=== PATIENT | female | born 1940 | race Caucasian/White ===

== ENCOUNTER 2017-04-24 12:49 | Emergency (ER) | payer MEDICARE, BC ==
--- NOTE | 2017-04-24 15:49 | UC ---
Respiratory Complaint HPI - HPI Summary HPI Summary: 76 y/o female presents to the urgent care c/o productive cough with chest congestion for the past 3 days. She heard mild wheezing and SOB yesterday which resolved today. She states mild LEWIS, body aches, +PND. Pt has applied eucalypti oil to alleviate cough. Pt denies fever, chest pain, abdominal pain, N /V/D - History of Current Complaint Stated Complaint: COUGH, CARO. Time Seen by Provider: 04/24/17 15:48 Hx Obtained From: Patient Hx Last Menstrual Period: menopausal ?: No Onset/Duration: Gradual Onset, Lasting Days - 3 days, Still Present, Worse Since - yesterday Timing: Intermittent Episodes Severity Initially: Mild Severity Currently: Mild Pain Intensity: 0 Pain Scale Used: 0-10 Numeric Character: Cough: Productive, Sputum Description: - clear or white at times Aggravating Factors: Recumbent Position Alleviating Factors: OTC Meds Associated Signs And Symptoms: Positive: Wheezing - yesterday, resolved today, URI, Nasal Congestion. Negative: Fever, Chills, Pleuritic Chest Pain, Dizziness - Risk Factors Pulmonary Embolism Risk Factors: Negative Cardiac Risk Factors: Hypertension, Elevated Lipids Pseudomonas Risk Factors: Negative Tuberculosis Risk Factors: Negative - Allergies/Home Medications Allergies/Adverse Reactions: Allergies Allergy/AdvReac Type Severity Reaction Status Date / Time Molds & Smuts Allergy Mild DIZZINESS, Verified 07/06/12 07:28 NAUSEA Acetaminophen [From Percocet] Allergy Hallucinati Verified 07/06/12 07:28 ons Oxycodone [From Percocet] Allergy Hallucinati Verified 07/06/12 07:28 ons Ibuprofen AdvReac See Comment Verified 04/24/17 15:46 BLEACH Allergy Mild DIZZINESS, Uncoded 07/06/12 07:28 NAUSEA ENVIRONMENTAL SENSITIVITIES Allergy DIZZINESS, Uncoded 07/06/12 07:28 NAUSEA Home Medications: Home Medications Apixaban* [Eliquis*] 5 mg PO BID 04/24/17 [History Confirmed 04/24/17] Atorvastatin* [Lipitor*] 10 mg PO BEDTIME 04/24/17 [History Confirmed 04/24/17] Calcitonin NASAL(NF) [Fortical(NR)] 1 mg NASAL DAILY 04/24/17 [History Confirmed 04/24/17] Diltiazem HCl Coated Beads [Diltiazem Cd] 120 mg PO DAILY 04/24/17 [History Confirmed 04/24/17] PARoxetine HCL TAB* [Paxil TAB*] 30 mg PO DAILY 04/24/17 [History Confirmed ] Polyethylene Glycol 3350* [Miralax*] 17 gm PO DAILY 04/24/17 [History Confirmed 04/24/17] Ranitidine HCl 150 mg PO DAILY 04/24/17 [History Confirmed 04/24/17] PMH/Surg Hx/FS Hx/Imm Hx Previously Healthy: Yes Endocrine History: Hypothyroidism, Dyslipidemia Cardiovascular History: Hypertension Other Cardiovascular History: arrhytmia GI/ History: Gastroesophageal Reflux - Surgical History Surgical History: Yes Surgery Procedure, Year, and Place: hysterectomy 2008 - Family History Known Family History: Positive: Hypertension - Social History Occupation: Retired Lives: With Family Substance Use Type: None, Prescribed Review of Systems Constitutional: Other - body aches Skin: Negative Eyes: Negative ENT: Nasal Discharge Respiratory: Cough - productive Cardiovascular: Negative Gastrointestinal: Negative Genitourinary: Negative Motor: Negative Neurovascular: Negative Musculoskeletal: Negative Neurological: Headache - mild Psychological: Negative Is Patient Immunocompromised?: No All Other Systems Reviewed And Are Negative: Yes Physical Exam Triage Information Reviewed: Yes - Additional Comments VITAL SIGNS: Reviewed. GENERAL: Patient is a well developed and nourished female who is sitting comfortable in the examining table. Patient is not in any acute respiratory distress. HEAD AND FACE: No signs of trauma. No ecchymosis, hematomas or skull depressions. No sinus tenderness. edematous erythematous nasal mucosa with yellowish discharge, EYES: PERRLA, EOMI x 2, No injected conjunctiva, clear watery eyes, no nystagmus. No photophobia. EARS: Hearing grossly intact. Ear canals and tympanic membranes are within normal limits. MOUTH: Positive pharynx with erythema, no exudates,no palatal petechiae. no B/L tonsillar enlargement Uvula in midline. NECK: Supple, trachea is midline, Positive anterior cervical lymphadenopathy, no JVD, no carotid bruit, no c-spine tenderness, neck with full ROM. No meningeal signs, no Kernig's or brudzinskis signs. CHEST: Symmetric, no tenderness at palpation LUNGS: Positive breath sound to auscultation bilaterally. Mild rhonchi in the Rt posterior upper lung., NO wheezing or crackles. CVS: Regular rate and rhythm, S1 and S2 present, no murmurs or gallops appreciated. ABDOMEN: Soft, non-tender. No signs of distention. No rebound no guarding, and no masses palpated. Bowel sounds are normal. EXTREMITIES: FROM in all major joints, no edema, no cyanosis or clubbing. NEURO: Alert and oriented x 3. No acute neurological deficits. Speech is normal and follows commands. SKIN: Dry and warm Respiratory Course/Dx - Course Course Of Treatment: 76 y/o female presents to the urgent care c/o productive cough with chest congestion for the past 3 days. She heard mild wheezing and SOB yesterday which resolved today. She states mild LEWIS, body aches, +PND. Pt has applied eucalypti oil to alleviate cough. Pt denies fever, chest pain, abdominal pain, N/V/D. Hx obtained. Pt with URI on examination. RT posteerior upper lung with mild rhonchi. Chest X-ray ordered, Impression: Hyperinflation, consisitent with COPD, no acute cardiopulmonary disease. Pt stopped smoking many years ago. Rapid A&B ordered, result: negative. Pt advised to continue taking Tyenol PO to alleviate symptoms. Pt advised to rest, increase fluid intake, eat well and avoid strenuous exercise. If symptoms do not improve or worsen advised to return to the urgent care or f/u with her PCP for further evaluation and treatment. Pt understood and agreed with plan of care. - Differential Dx/Diagnosis Differential Diagnosis/HQI/PQRI: Asthma, Bronchitis, Influenza, Laryngitis, Lower Resp Infection, Sinusitis Provider Diagnoses: 1- Upper respiratory infection. 2- Uncontrolled HTN Discharge - Discharge Plan Condition: Stable Disposition: HOME Patient Education Materials: Upper Respiratory Infection (ED), Low-Sodium Diet (ED) Referrals: Zachariah Gamboa MD [Primary Care Provider] - 3 Days Additional Instructions: 1-Please take tylenol PO q6-8hrs prn as instructed after meals to alleviate body aches . Increase fluid intake, eat well, rest and avoid strenuous exercise. Use a humidifier at night time. 2-If symptoms do not improve or worsen please f/u with your PCP for further evaluation and treatment. 3- Influenza A&B is negative today 4-Your BP is elevated today. please decrease salt in your diet, monitor BP and if it continues to be elevated please f/u with your PCP for further management
[2017-04-24 16:06] VITALS: BP 140/70
--- NOTE | 2017-04-24 16:35 | RAD ---
HISTORY: Productive cough, shortness of breath COMPARISONS: None VIEWS: 4: Frontal dual-energy and lateral views of the chest. FINDINGS: CARDIOMEDIASTINAL SILHOUETTE: The cardiomediastinal silhouette is normal. MARLA: The marla are normal. PLEURA: The costophrenic angles are sharp. No pleural abnormalities are noted. LUNG PARENCHYMA: There is hyperinflation with flattening of the diaphragm and expansion of the AP diameter of the chest. ABDOMEN: The upper abdomen is clear. There is no subphrenic gas. BONES AND SOFT TISSUES: No bone or soft tissue abnormalities are noted. OTHER: None. IMPRESSION: HYPERINFLATION, CONSISTENT WITH COPD. NO ACTIVE CARDIOPULMONARY DISEASE.
== END 2017-04-24 17:01 | disposition home or self-care (01) ==
LOC: UCCORT 12:49
DX: J06.9 Acute upper respiratory infection, unspecified (principal); Z78.0 Asymptomatic menopausal state; I10 Essential (primary) hypertension; E78.5 Hyperlipidemia, unspecified; Z88.6 Allergy status to analgesic agent; Z88.5 Allergy status to narcotic agent; Z79.01 Long term (current) use of anticoagulants; E03.9 Hypothyroidism, unspecified; I49.9 Cardiac arrhythmia, unspecified; K21.9 Gastro-esophageal reflux disease without esophagitis
CPT/HCPCS: 71046; 87502; 99212; G0463

== ENCOUNTER 2017-12-10 13:14 | Emergency (ER) | payer MEDICARE, BC ==
[2017-12-10 13:49] VITALS: BP 125/63
--- NOTE | 2017-12-10 15:01 | UC ---
Skin Complaint HPI - HPI Summary HPI Summary: Bee sting to left hand fourth finger yesterday. Now has edema to the hand and she is unable to remove her ring. - History of Current Complaint Chief Complaint: UCSkin Time Seen by Provider: 12/10/17 14:43 Stated Complaint: LEFT HAND SWELLING Hx Obtained From: Patient Hx Last Menstrual Period: menopausal Onset/Duration: Sudden Onset, Lasting Days - 1 day, Still Present Timing: Constant Onset Severity: Mild Current Severity: Moderate Pain Intensity: 5 Pain Scale Used: 0-10 Numeric Location: Discrete - left hand Character: Swelling Aggravating Factor(s): Nothing Alleviating Factor(s): Nothing Associated Signs & Symptoms: Negative: Nausea, Difficulty Breathing, Fever, Throat Tightening Related History: Insect Bite/Sting - Allergy/Home Medications Allergies/Adverse Reactions: Allergies Allergy/AdvReac Type Severity Reaction Status Date / Time acetaminophen [From Percocet] Allergy Hallucinations- Verified 12/10/17 13:53 Pt can take acetaminophen mold Allergy Dizziness Verified 12/10/17 13:53 oxycodone [From Percocet] Allergy Hallucinati Verified 12/10/17 13:51 ons ibuprofen AdvReac Pt on Verified 12/10/17 13:51 Eloquis BLEACH Allergy Mild DIZZINESS, Uncoded 07/06/12 07:28 NAUSEA ENVIRONMENTAL SENSITIVITIES Allergy DIZZINESS, Uncoded 07/06/12 07:28 NAUSEA Home Medications: Home Medications Ca, Mg, Vitamin D 1 tab PO DAILY 12/10/17 [History Confirmed 12/10/17] Flaxseed Oil [Berlin-3 Flaxseed Oil] 1,000 mg PO DAILY 12/10/17 [History Confirmed 12/10/17] Review of Systems Constitutional: Negative Skin: Other - bee sting Respiratory: Negative Cardiovascular: Negative Gastrointestinal: Negative Musculoskeletal: Edema All Other Systems Reviewed And Are Negative: Yes PMH/Surg Hx/FS Hx/Imm Hx Cardiovascular History: Hypertension - Surgical History Surgical History: Yes Surgery Procedure, Year, and Place: hysterectomy 2008 - Family History Known Family History: Positive: Hypertension - Social History Alcohol Use: None Substance Use Type: None Smoking Status (MU): Never Smoked Tobacco Physical Exam Triage Information Reviewed: Yes Appearance: Well-Appearing, Well-Nourished Vital Signs: Initial Vital Signs Temp 98.4 F 12/10/17 13:38 Pulse 55 12/10/17 13:38 Resp 20 12/10/17 13:38 BP 125/63 12/10/17 13:38 Pulse Ox 100 12/10/17 13:38 Vital Signs Reviewed: Yes Eyes: Positive: Conjunctiva Clear ENT: Positive: Hearing grossly normal Neck: Positive: Supple Respiratory: Positive: No respiratory distress, No accessory muscle use Cardiovascular: Positive: Pulses Normal Abdomen Description: Positive: Soft Musculoskeletal: Positive: Edema @ - LEFT HAND/FINGERS Neurological: Positive: Alert Psychological: Positive: Age Appropriate Behavior Skin: Positive: Other - BEE STING DORSUM LEFT 4TH FINGER OVERLYING PROXIMAL PHALANX. Negative: rashes Course/Dx - Course Course Of Treatment: RING CUTTER USED TO REMOVE RING LEFT 4TH FINGER WITHOUT DIFFICULTY. PREDNISONE AND OTC ANTIHISTAMINE. F/U IF NEEDED. - Diagnoses Provider Diagnoses: 1. BEE STING. 2. RING REMOVAL Discharge - Sign-Out/Discharge Documenting (check all that apply): Patient Departure All imaging exams completed and their final reports reviewed: No Studies - Discharge Plan Condition: Stable Disposition: HOME Prescriptions: predniSONE TAB* [Deltasone 20 MG TAB*] 40 mg PO DAILY #10 tab Patient Education Materials: Insect Bite or Sting (ED) Referrals: Zachariah Gamboa MD [Primary Care Provider] - If Needed Additional Instructions: THE SWELLING IN YOUR HAND IS LIKELY DUE TO A LOCAL ALLERGIC REACTION TO THE BEE STING. AVOID OVERHEATING. KEEP THE LIMB ELEVATED. TAKE AN [id number]-[id number] ANTIHISTAMINE DAILY (CLARITIN (LORATADINE), ZYRTEC (CETIRIZINE) OR NAIN ( FEXOFENADINE)) IN THE MORNING. PREDNISONE DAILY FOR 5 DAYS. SEEK FOLLOW-UP IF YOU DEVELOP SPREADING REDNESS OF THE SKIN, PURULENT DRAINAGE, FEVER, INCREASED PAIN OR ANY OTHER CONCERNING SYMPTOMS. - Billing Disposition and Condition Condition: STABLE Disposition: Home
== END 2017-12-10 15:19 | disposition home or self-care (01) ==
LOC: UCCORT 13:14
DX: T63.441A Toxic effect of venom of bees, accidental (unintentional), initial encounter (principal); M79.89 Other specified soft tissue disorders; Y92.9 Unspecified place or not applicable; Z88.6 Allergy status to analgesic agent; Z88.5 Allergy status to narcotic agent; I10 Essential (primary) hypertension
CPT/HCPCS: 99213; G0463

== ENCOUNTER 2017-12-12 15:44 | Emergency (ER) | payer MEDICARE, BC ==
[2017-12-12 15:57] VITALS: BP 140/75
--- NOTE | 2017-12-12 16:31 | UC ---
Skin Complaint HPI - HPI Summary HPI Summary: WAS SEEN two days ago FOR A BEE STING ON LEFT RING FINGER AFTER WHICH THE RING WAS CUT AND SHE WAS GIVEN A PRESCRIPTION OF PREDNISONE. PATIENT HAS INADVERTENLY BEEN TAKING ONLY ONE TABLET INSTEAD OF TWO TABLETS OF PREDNISONE EACH EVENING AND HAS NOTED REDNESS ON THE LEFT FOREARM THAT COMES AND GOES WITH ITCHING. DENIES FEVER, CHILLS OR TENDERNESS OF THE AREA. - History of Current Complaint Chief Complaint: UCSkin Time Seen by Provider: 12/12/17 16:20 Stated Complaint: RECHECK (LEFT ARM) Hx Obtained From: Patient Hx Last Menstrual Period: menopausal ?: No Onset/Duration: Sudden Onset, Lasting Days Skin Exposure Onset/Duration: Days Ago Timing: Constant Onset Severity: Mild Current Severity: Moderate Pain Intensity: 0 Location: Other - arm Character: Hives - Allergy/Home Medications Allergies/Adverse Reactions: Allergies Allergy/AdvReac Type Severity Reaction Status Date / Time acetaminophen [From Percocet] Allergy Hallucinations- Verified 12/10/17 13:53 Pt can take acetaminophen mold Allergy Dizziness Verified 12/10/17 13:53 oxycodone [From Percocet] Allergy Hallucinati Verified 12/10/17 13:51 ons ibuprofen AdvReac Pt on Verified 12/10/17 13:51 Eloquis BLEACH Allergy Mild DIZZINESS, Uncoded 07/06/12 07:28 NAUSEA ENVIRONMENTAL SENSITIVITIES Allergy DIZZINESS, Uncoded 07/06/12 07:28 NAUSEA Review of Systems Skin: Rash All Other Systems Reviewed And Are Negative: Yes PMH/Surg Hx/FS Hx/Imm Hx Endocrine History: Hypothyroidism Cardiovascular History: Hypertension, Atrial Fibrillation Respiratory History: Asthma GI/ History: Gastroesophageal Reflux Psychological History: Anxiety, Depression - Surgical History Surgical History: Yes Surgery Procedure, Year, and Place: hysterectomy 2009 - Family History Known Family History: Positive: Hypertension - Social History Alcohol Use: None Substance Use Type: None Smoking Status (MU): Never Smoked Tobacco Physical Exam Triage Information Reviewed: Yes Appearance: Well-Appearing, No Pain Distress, Well-Nourished Vital Signs: Initial Vital Signs Temp 98.3 F 12/12/17 15:52 Pulse 58 12/12/17 15:52 Resp 16 12/12/17 15:52 BP 140/75 12/12/17 15:52 Pulse Ox 99 12/12/17 15:52 Eyes: Positive: Conjunctiva Clear ENT: Positive: Hearing grossly normal, Pharynx normal Neck: Positive: Supple Respiratory: Positive: Chest non-tender, Lungs clear Cardiovascular: Positive: Pulses Normal, Brisk Capillary Refill Abdomen Description: Positive: Nontender Musculoskeletal: Positive: Strength Intact, ROM Intact, No Edema Skin Exam: Other - BLANCHING ERYTHEMA ON VOLAR SURFACE OF LEFT MEDIAL FOREARM, NON TENDER TO PALPATION. SCABBING ON DORSUM OF PROXIMAL PHALANX 4TH LEFT FINGER , NO ERYTHEMA, DISCHARGE OR TENDERNESS Course/Dx - Course Course Of Treatment: PATIENT HAS HISTORY OF A BEE STING 2 DAYS AGO WITH SWELLING OF HAND AND FINGER. SHE HAS BEEN TAKING A SUBOPTIMAL DOSE OF PREDNISONE BY MISTAKE AND PRESENTS WITH ITCHY RASH ON FOREARM. START CORRECT DOSE OF PREDNISONE TODAY AND TOMORROW. WILL PRESCRIBE KEFLEX FOR POSSIBLE CELLULITIS OF FOREARM. FOLLOW UP WITH PCP IN ONE WEEK. - Diagnoses Provider Diagnoses: LEFT FOREARM CELLULITIS. ALLERGIC REACTION TO BEE STING Discharge - Sign-Out/Discharge Documenting (check all that apply): Patient Departure All imaging exams completed and their final reports reviewed: No Studies - Discharge Plan Condition: Stable Disposition: HOME Prescriptions: Cephalexin CAP* [Keflex CAP*] 500 mg PO TID 5 Days #15 cap Patient Education Materials: Cephalexin (By mouth), Cellulitis (ED), Insect Bite or Sting (ED) Referrals: Zachariah Gamboa MD [Primary Care Provider] - Additional Instructions: Please take Prednisone 2 tablets now and 2 tablets tomorrow morning. An antibiotic has been ordered to your pharmacy to treat cellulitis of the arm. Please take as instructed. Follow up with your primary care doctor in a week. - Billing Disposition and Condition Condition: STABLE Disposition: Home
== END 2017-12-12 17:17 | disposition home or self-care (01) ==
LOC: UCCORT 15:44
CPT/HCPCS: 99212; G0463